=== PATIENT | male | born 1965 | race Hispanic/Latino ===

== ENCOUNTER 2018-11-16 11:28 | Inpatient (IN) | payer OTHER ==
[~2018-11-16] VITALS: Ht 182.9 cm; Wt 156.0 kg
--- OUTSIDE RECORDS SUMMARY | 2018-11-16 11:30 | XMS REPORT ---
Author Author [facility] Address Unknown Phone Unavailable Care Team Providers Care Structured Cabling Technician Name Role Phone Unavailable Unavailable Payers Payer Name Policy Type Policy Number Effective Date Expiration Date Problems This patient has no known problems. Allergies, Adverse Reactions, Alerts Allergy Name Allergy Type Status Severity Reaction(s) Onset Date Inactive Date Treating Clinician Comments No Known Allergies DA Active U 2018-02-16 00:00:00 No Known Allergies DA Active U 2017-04-07 00:00:00 Medications This patient has no known medications.
[2018-11-16 12:34] LABS: BASOPHILS # (AUTO) 0.1 (0.0-0.1); BASOPHILS % 0.4 % (0.0-1.0); EOSINOPHILS # (AUTO) 0.4 (0.0-0.4); HEMATOCRIT 45.2 % (38.2-49.6); HEMOGLOBIN 14.9 g/dL (14.0-18.0); LYMPHOCYTES # (AUTO) 1.4 (1.0-3.2); LYMPHOCYTES % 11.1 % (18.0-39.1); MONOCYTES # (AUTO) 1.7 (0.2-0.8); MONOCYTES % 13.7 % (4.4-11.3); NEUTROPHILS # (AUTO) 8.7 (2.1-6.9); NEUTROPHILS % 71.1 % (38.7-80.0); PLATELET COUNT 236 x10e3/uL (140-360); RED BLOOD COUNT 4.52 x10e6/uL (4.3-5.7)
--- NOTE | 2018-11-16 12:37 | Diagnostic Imaging Report ---
EXAMINATION: CHEST SINGLE (PORTABLE) INDICATION: Shortness of breath. COMPARISON: None FINDINGS: TUBES and LINES: None. LUNGS: Lungs are not well inflated. There is no evidence of pneumonia or pulmonary edema. Linear subsegmental atelectasis at the left lung base. PLEURA: No pleural effusion or pneumothorax. HEART AND MEDIASTINUM: The cardiomediastinal silhouette is unremarkable. BONES AND SOFT TISSUES: No acute osseous abnormality. Healed right posterolateral sixth through eighth rib fractures. UPPER ABDOMEN: No free air under the diaphragm. IMPRESSION: No acute radiographic abnormality. Signed by: Dr. Lillian Sanders MD on 11/16/2018 12:34 PM
[2018-11-16 12:43] LABS: INR 0.85; PROTHROMBIN TIME 12.1 seconds (11.9-14.5)
[2018-11-16 12:44] LABS: PARTIAL THROMBOPLASTIN TIME 19.7 seconds (23.8-35.5)
[2018-11-16] MEDS ORDERED: VANCOMYCIN 1GM/NS 250 ML 250 ML IV SCH (12:45)
[2018-11-16 12:56] LABS: ALANINE AMINOTRANSFERASE 49 IU/L (0-55); ALBUMIN 3.8 g/dL (3.5-5.0); ALKALINE PHOSPHATASE 99 IU/L (40-150); ANION GAP 13.9 mmol/L (8-16); BLOOD UREA NITROGEN 36 mg/dL (7-26); BUN/CREATININE RATIO 20 (6-25); CARBON DIOXIDE 20 mmol/L (22-29); CHLORIDE 104 mmol/L (98-107); CREATINE KINASE 253 IU/L (30-200); CREATININE, SERUM 1.76 mg/dL (0.72-1.25); EST GLOMERULAR FILTRATION RATE 41 ML/MIN (60-); GLUCOSE 92 mg/dL (74-118); POTASSIUM 5.9 mmol/L (3.5-5.1); SODIUM 132 mmol/L (136-145)
[2018-11-16] MEDS ORDERED: LISINOPRIL30 MG PO (12:57)
[2018-11-16] MEDS ORDERED: KLOR-CON M2020 MEQ PO (12:57)
[2018-11-16] MEDS ORDERED: ATENOLOL50 MG PO (12:57)
[2018-11-16] MEDS ORDERED: LEVALBUTEROL INH (12:57)
[2018-11-16] MEDS ORDERED: HYDROCHLOROTHIA50 MG PO (12:57)
[2018-11-16] MEDS ORDERED: METFORMIN HCL1000 MG PO (12:57)
[2018-11-16] MEDS ORDERED: SIMVASTATIN20 MG PO (12:57)
[2018-11-16] MEDS ORDERED: ASPIRIN81 MG PO (12:57)
[2018-11-16] MEDS: ALBUTEROL/IPRATROPIUM 3 ML NEB NEB ONE ×2 (13:30→14:20)
[2018-11-16] MEDS ORDERED: SOD POLYSTYRENE SULFONATE SUSP 15 GM/60 ML BTL PO NR ×2 (15:15→18:30)
[2018-11-16] MEDS ORDERED: SODIUM CHLORIDE 0.9% 1000ML 1,000 ML IV SCH (15:28)
[2018-11-16] MEDS ORDERED: ONDANSETRON HCL INJ 2MG/ML 2ML 2 MG/ML VIAL IV PRN (15:30)
[2018-11-16] MEDS ORDERED: MORPHINE SULFATE 2 MG/ML SYR 1ML IV PRN (15:30)
--- NOTE | 2018-11-16 16:29 | NUR ---
Patient admitted to unit from ER. patient arrived via wheelchair. Patient is AAOx3. Patient lung mendieta clear to auscultation and diminished in lower lung mendieta. Bowel sounds present x4. 2+ edema noted to BLE. Redness noted to BLE as well. Warm to touch. Some pain in legs when ambulates. Right leg redness noted to be at mid julien and left leg noted to be about mid calf. No drainage noted. Patient ambulates on his own. Patient is a 2 pack a day smoker and requesting a nicotine patch. Order received from . No s/s of distress noted
[2018-11-16 16:41] VITALS: BP 103/55
[2018-11-16 16:56] VITALS: BP 103/55
[2018-11-16] MEDS: NICOTINE 21 MG/EA PATCH TOP SCH (17:25)
[2018-11-16] MEDS: SODIUM CHLORIDE 0.9% 1000ML 1,000 ML IV SCH (17:25)
[2018-11-16] MEDS ORDERED: LEVALBUTEROL INH SCH (18:00)
[2018-11-16] MEDS ORDERED: LACTULOSE SYRUP 20 GM/30 ML UDC PO NR ×2 (18:30→21:15)
--- NOTE | 2018-11-16 18:32 | NUR ---
Patient refused chaidez catheter at this time. Patient given a urinal and a hat to void in for strict output. Patient is very anxious at this time and wanting to go smoke. Informed patient I would call MD and get orders for medications
[2018-11-16] MEDS: LEVALBUTEROL 15 GM AERO IH SCH ×2 (19:00→23:00)
[2018-11-16 19:33] VITALS: BP 115/55
[2018-11-16 20:00] VITALS: BP 115/55
[2018-11-16] MEDS ORDERED: TEMAZEPAM 15 MG CAP PO PRN (20:00)
[2018-11-16] MEDS ORDERED: MAGNESIUM HYDROXIDE 30 ML UDC PO PRN (20:00)
[2018-11-16] MEDS ORDERED: PROMETHAZINE HCL 25 MG TAB PO PRN (20:00)
[2018-11-16 20:10] LABS: BILIRUBIN,URINE NEGATIVE (NEGATIVE); CLARITY,URINE CLEAR (CLEAR); COLOR,URINE YELLOW (YELLOW); KETONES,URINE NEGATIVE (NEGATIVE); LEUKOCYTE ESTERASE ,URINE NEGATIVE (NEGATIVE); NITRITE,URINE NEGATIVE (NEGATIVE); PROTEIN,URINE DIPSTICK NEGATIVE (NEGATIVE); URINE UROBILINOGEN 0.2 mg/dL (0.2 - 1)
[2018-11-16 20:25] LABS: BACTERIA,URINE MODERATE /HPF
[2018-11-16] MEDS: ALBUTEROL/IPRATROPIUM 3 ML NEB NEB SCH (20:50)
[2018-11-16] MEDS: SIMVASTATIN 20 MG TAB PO SCH (21:11)
[2018-11-16] MEDS: QUETIAPINE FUMARATE 25 MG TAB PO SCH (21:11)
--- NOTE | 2018-11-16 23:47 | History and Physical ---
Mr. Mejias is a complex 53-year-old man, who is a warehouse shipping receiving clerk, who is sent from Dr. Mejia's office today with right ankle. HISTORY OF PRESENT ILLNESS: Mr. Mejias is a man with the economy of words, but says that his ankles have been swollen since Thursday. Indeed, his ankles have been swollen for a long time and initially was given a diuretic, hydrochlorothiazide 50 mg daily as far back as July initially with some improvement. PAST MEDICAL HISTORY: Significant for longstanding hypertension, hyperglycemia, COPD. He reports he thinks he has sleep apnea, but has never had a sleep study. MEDICATIONS: Recent home medications include lisinopril 30 mg daily, atenolol 50 mg daily, metformin 1000 mg twice a day, simvastatin 20 mg daily, hydrochlorothiazide 50 mg daily, levalbuterol inhaler, and potassium chloride 20 mEq daily. PERSONAL AND SOCIAL HISTORY: Continues to smoke. PAST SURGICAL HISTORY: A left ankle fracture with plate and screws in August of 2014. He may have had angiograms of something in the past, he cannot tell me. FAMILY HISTORY: Father at 54 with stroke. Mother is still alive at age 76. PHYSICAL EXAMINATION: GENERAL: At this time shows an obese man with multiple tattoos. Alert and responsive. VITAL SIGNS: He is 6 feet tall, weighing 344 pounds. Blood pressure is 100/70. HEAD, EYES, EARS, NOSE, AND THROAT: Otherwise unremarkable. NECK: No jugular venous distention. No bruits. THORAX: Heart sounds S1 and S2 are equal. No murmurs. LUNGS: Prolonged inspiratory and expiratory phases, but no wheezing or rhonchi. ABDOMEN: Markedly protuberant. Normal bowel sounds. EXTREMITIES: Have 1+ pretibial edema and bilateral anterior tibial erythema. PERTINENT LABORATORY STUDIES: Show a BUN 36, creatinine 1.76, potassium 5.9. White count 12.2, hemoglobin 14.9. Chest x-ray is unremarkable. ASSESSMENT: 1. Edema and erythema with cellulitis secondary to chronic swelling. 2. Type 2 adult onset diabetes. 3. Renal insufficiency. 4. Hypertension. 5. Hyperkalemia. PLAN: We will hold the lisinopril, potassium and check echocardiogram. I have instructed him to lie down and elevate his legs if he expects improvement of his edema and cellulitis. We will consult Nephrology. Further management based on clinical course. MD FATMATA Camacho/RAISA /[id number] cc: MD Henok Galeano MD
[2018-11-17] VITALS (7 sets, daily range): BP systolic 117–137; BP diastolic 58–63
[2018-11-17] MEDS: ALBUTEROL/IPRATROPIUM 3 ML NEB NEB SCH ×5 (03:05→20:10)
[2018-11-17] MEDS: SODIUM CHLORIDE 0.9% 1000ML 1,000 ML IV SCH ×4 (05:33→23:08)
[2018-11-17] MEDS: QUETIAPINE FUMARATE 25 MG TAB PO SCH ×3 (05:33→22:50)
[2018-11-17 05:38] LABS: HEMATOCRIT 43.2 % (38.2-49.6); HEMOGLOBIN 13.7 g/dL (14.0-18.0); RED BLOOD COUNT 4.18 x10e6/uL (4.3-5.7)
[2018-11-17 05:39] LABS: BASOPHILS # (AUTO) 0.1 (0.0-0.1); BASOPHILS % 0.7 % (0.0-1.0); EOSINOPHILS # (AUTO) 0.5 (0.0-0.4); EOSINOPHILS % 4.4 % (0.0-6.0); LYMPHOCYTES # (AUTO) 2.1 (1.0-3.2); LYMPHOCYTES % 19.3 % (18.0-39.1); MEAN CORPUSCULAR HEMOGLOBIN 32.8 pg (28-32); MEAN CORPUSCULAR HGB CONC 31.7 g/dL (31-35); MONOCYTES # (AUTO) 1.7 (0.2-0.8); MONOCYTES % 15.7 % (4.4-11.3); NEUTROPHILS # (AUTO) 6.3 (2.1-6.9); NEUTROPHILS % 59.1 % (38.7-80.0); PLATELET COUNT 220 x10e3/uL (140-360); RED CELL DISTRIBUTION WIDTH 14.1 % (11.7-14.4)
[2018-11-17 05:40] LABS: MEAN CORPUSCULAR VOLUME 103.3 fL (81-99)
[2018-11-17 05:54] LABS: ANION GAP 12.6 mmol/L (8-16); CREATININE, SERUM 1.38 mg/dL (0.72-1.25); POTASSIUM 4.6 mmol/L (3.5-5.1)
[2018-11-17] MEDS: LEVALBUTEROL 15 GM AERO IH SCH ×5 (07:05→23:00)
[2018-11-17] MEDS ORDERED: HYDROCHLOROTHIAZIDE 50 MG PO SCH (09:00)
[2018-11-17] MEDS ORDERED: NON-FORMULARY MEDICATION (Metformin Hcl 1,000 MG) PO SCH (09:00)
[2018-11-17] MEDS ORDERED: VANCOMYCIN 1GM/NS 250 ML 250 ML IV SCH (09:00)
[2018-11-17] MEDS: METFORMIN HCL 500 MG TAB PO SCH ×2 (09:34→16:53)
[2018-11-17] MEDS: ASPIRIN 81 MG CHEW TAB PO SCH (09:35)
[2018-11-17] MEDS: NICOTINE 21 MG/EA PATCH TOP SCH (09:35)
[2018-11-17] MEDS: ATENOLOL 50 MG TAB PO SCH (09:35)
[2018-11-17] MEDS: HYDROCHLOROTHIAZIDE 25 MG TAB PO SCH (09:35)
--- NOTE | 2018-11-17 10:46 | NUR ---
Labs reported to Dr. Ibarra , no new orders at this time
--- NOTE | 2018-11-17 11:01 | Diagnostic Imaging Report ---
Renal ultrasound. History: NASEEM Discussion: Transverse and longitudinal images of the kidneys were obtained demonstrating normal renal sizes and echogenicities. There is no evidence of hydronephrosis, mass, or renal calculus. The right kidney measures 11.7 x 5.8 x 6.1 cm and the left kidney measures 12.1 x 5.7 x 4.5 cm. Maximal cortical thickness on the right is 1.8 cm and on the left 1.7 cm. The urinary bladder is unremarkable. Urinary jets are not visualized. There is no evidence of free fluid. Incidental notice is made of a fatty liver. IMPRESSION: Normal renal ultrasound. Signed by: Dr. Vitaliy Banks DO on 11/17/2018 10:57 AM
[2018-11-17] MEDS: VANCOMYCIN 1GM/NS 250 ML 250 ML IV SCH (12:11)
--- NOTE | 2018-11-17 15:13 | NUR ---
Nutrition Screen Note RD Recommendation for Physician: -Continue current diet as ordered Plan of Care: RD following, monitoring for tolerance and adequacy Nutrition reason for involvement: Nutrition Risk Trigger MST Primary Diagnose(s): Edema and erythema with cellulitis secondary to chronic swelling. PMH: hypertension, COPD, DM Ht: 72in Wt: 344lb BMI: 46.7kg/m2 IBW: 178lb RD Assessment: (11/17) Chart reviewed. Labs and meds reviewed. 53yo M, who was admitted for LLE cellulitis and swelling. Visited pt in the room. Pt reported good appetite prior and during hospital stay. No recent weight loss reported. Pt denied any nausea or vomiting. LBM 11/16. No chewing or swallowing difficulty noted. Will continue to monitor and follow. Current Diet: ADA 1800 Malnutrition Evaluation (11/17/2018) The patient does not meet criteria for a specified degree of malnutrition at this time. Will re-evaluate at follow-up as appropriate. Diet Education Needs Assessment: Diet education not indicated. Nutrition Care Level: low Signed: Cher Carias, MS, RD, LD
[2018-11-17] MEDS ORDERED: DEXTROSE 50% SYRINGE 50 ML IV PRN (17:30)
[2018-11-17] MEDS ORDERED: MORPHINE SULFATE INJ 4 MG/ML INJ 1ML IV PRN (17:30)
--- NOTE | 2018-11-17 18:12 | NUR ---
Urine sample taken to lab
[2018-11-17 18:33] LABS: BILIRUBIN,URINE NEGATIVE (NEGATIVE); CLARITY,URINE CLEAR (CLEAR); COLOR,URINE YELLOW (YELLOW); KETONES,URINE NEGATIVE (NEGATIVE); LEUKOCYTE ESTERASE ,URINE NEGATIVE (NEGATIVE); NITRITE,URINE NEGATIVE (NEGATIVE); PROTEIN,URINE DIPSTICK TRACE (NEGATIVE); URINE UROBILINOGEN 0.2 mg/dL (0.2 - 1)
--- NOTE | 2018-11-17 19:22 | NUR ---
Bedside report and walking rounds complete. Pt resting in bed and in no apparent distress. All safety measures ensured and pt call mattson near. Pt encouraged to use call mattson for assistance.
[2018-11-17 19:51] LABS: CREATININE,URINE RANDOM 57.1 mg/dL (63-166); TOTAL PROTEIN, URINE 17.2 mg/dL (1-14)
[2018-11-17] MEDS: INSULIN REGULAR, HUMAN 100 UNIT/1 ML 3ML VIAL SQ SCH (21:00)
--- NOTE | 2018-11-17 22:07 | Consultation ---
DATE OF CONSULTATION: 11/17/2018 REASON FOR CONSULTATION: Hyperkalemia and acute kidney injury. HISTORY OF PRESENT ILLNESS: A 53-year-old gentleman with at least 8 years history of type 2 diabetes, maintained on metformin with a history of hypertension, tobacco addiction, has been on metformin, hydrochlorothiazide, atenolol at home, currently on temazepam, simvastatin, Seroquel, Phenergan p.r.n., Zofran p.r.n., nicotine patch, metformin, atenolol or Tenormin, aspirin, albuterol, Atrovent nebulizer, and Tylenol. He denies any prior history of any renal insufficiency or kidney stone disease. Found to have a potassium level, which was elevated at 5.9, treated with Kayexalate and lactulose with good response. The patient loves to drink Gatorade he says. Drinks about two or three bottles a day. Continues to smoke. Does not drink. Looking at his body habitus, I asked him if he had. He snores or has a history of sleep apnea. The patient states that he does snore, but he is not sure if he has sleep apnea or not. He does take nebulizer at home before going to bed. He denies any hematuria, cough, hemoptysis, or shortness of breath. Denies any exposure to hepatitis B or hepatitis C. Denies any joint pains. Denies any swelling of the extremities. He did notice a reddish colored rash in the pretibial areas quite symmetric bilaterally, which is small, blotchy, and with few petechiae. Otherwise, he has not noticed that rash anywhere in his body. ALLERGIES: HE DENIES ANY DRUG ALLERGIES. LABORATORY TEST: He had a urinalysis done shows specific gravity 10/20, urine microscopy completely benign with 0 RBC in fact none and no WBCs. Dipstick negative proteins. SOCIAL HISTORY: As above, he does drink occasionally, but not on a regular basis he stays. CURRENT MEDICATIONS: As mentioned above. He is on Seroquel 25 mg p.o. q.8, aspirin 81 mg daily, received one dose of vancomycin, currently receiving normal saline 125 mL an hour. PHYSICAL EXAMINATION: GENERAL: Awake, alert, lying supine, in no apparent distress with a blood pressure 123/63, pulse rate 90, afebrile, and oxygen saturation 94%. HEAD AND NECK: Cornea clear. Mucosa moist. Neck veins flat. LUNGS: Relatively clear. HEART: S1, S2 audible. ABDOMEN: Soft and nontender. EXTREMITIES: Lower extremity, no edema. SKIN: There is no rash noted on the abdomen. No petechiae or purpura noted anywhere else. IMPRESSION AND PLAN: 1. Acute kidney injury, improving. 2. Hyperkalemia, resolving. 3. Underlying type 2 diabetes. 4. Suspect acute on chronic kidney injury. 5. Possible diabetic nephropathy. 6. Vasculitis is a differential diagnosis, but urinalysis completely benign. I will repeat UA with microscopy. Obtain uric acid level. Please see orders. MD KVNG Nettles/MODL /[id number]
[2018-11-17] MEDS: SIMVASTATIN 20 MG TAB PO SCH (22:50)
[2018-11-18] VITALS (7 sets, daily range): BP systolic 118–136; BP diastolic 58–69
[2018-11-18] MEDS: ALBUTEROL/IPRATROPIUM 3 ML NEB NEB SCH ×7 (00:10→23:45)
[2018-11-18] MEDS: LEVALBUTEROL 15 GM AERO IH SCH ×6 (03:00→23:00)
[2018-11-18] MEDS: QUETIAPINE FUMARATE 25 MG TAB PO SCH ×3 (06:00→21:46)
[2018-11-18 06:02] LABS: BASOPHILS # (AUTO) 0.1 (0.0-0.1); BASOPHILS % 0.7 % (0.0-1.0); EOSINOPHILS # (AUTO) 0.5 (0.0-0.4); HEMATOCRIT 43.3 % (38.2-49.6); HEMOGLOBIN 13.6 g/dL (14.0-18.0); LYMPHOCYTES # (AUTO) 2.4 (1.0-3.2); LYMPHOCYTES % 24.8 % (18.0-39.1); MEAN CORPUSCULAR HEMOGLOBIN 32.2 pg (28-32); MEAN CORPUSCULAR HGB CONC 31.4 g/dL (31-35); MEAN CORPUSCULAR VOLUME 102.4 fL (81-99); MONOCYTES # (AUTO) 1.4 (0.2-0.8); MONOCYTES % 13.8 % (4.4-11.3); NEUTROPHILS # (AUTO) 5.3 (2.1-6.9); NEUTROPHILS % 54.7 % (38.7-80.0); PLATELET COUNT 232 x10e3/uL (140-360); RED BLOOD COUNT 4.23 x10e6/uL (4.3-5.7); RED CELL DISTRIBUTION WIDTH 13.9 % (11.7-14.4)
[2018-11-18 06:26] LABS: ALANINE AMINOTRANSFERASE 55 IU/L (0-55); ALBUMIN 3.3 g/dL (3.5-5.0); ALKALINE PHOSPHATASE 85 IU/L (40-150); ANION GAP 12.7 mmol/L (8-16); BLOOD UREA NITROGEN 22 mg/dL (7-26); BUN/CREATININE RATIO 20 (6-25); CALCIUM 9.4 mg/dL (8.4-10.2); CARBON DIOXIDE 25 mmol/L (22-29); CHLORIDE 104 mmol/L (98-107); CREATININE, SERUM 1.12 mg/dL (0.72-1.25); EST GLOMERULAR FILTRATION RATE > 60 ML/MIN (60-); GLUCOSE 117 mg/dL (74-118); POTASSIUM 4.7 mmol/L (3.5-5.1); SODIUM 137 mmol/L (136-145)
[2018-11-18] MEDS: INSULIN REGULAR, HUMAN 100 UNIT/1 ML 3ML VIAL SQ SCH (07:30)
[2018-11-18] MEDS: SODIUM CHLORIDE 0.9% 1000ML 1,000 ML IV SCH ×2 (08:00→15:30)
[2018-11-18] MEDS: HYDROCHLOROTHIAZIDE 25 MG TAB PO SCH (09:24)
[2018-11-18] MEDS: VANCOMYCIN 1GM/NS 250 ML 250 ML IV SCH (09:24)
[2018-11-18] MEDS: NICOTINE 21 MG/EA PATCH TOP SCH (09:24)
[2018-11-18] MEDS: ASPIRIN 81 MG CHEW TAB PO SCH (09:24)
[2018-11-18] MEDS: ATENOLOL 50 MG TAB PO SCH (09:24)
[2018-11-18 14:37] LABS: FREE T4 (FREE THYROXINE) 0.75 ng/dL (0.9-1.8); THYROID STIMULATING HORMONE 2.803 uIU/mL (0.350-4.940)
--- NOTE | 2018-11-18 15:00 | NUR ---
Nutrition Follow-up Note RD Recommendation for Physician: - Continue current diet as ordered - RD provided education on ADA diet as consulted. Plan of Care: RD following, monitoring for tolerance and adequacy, diet education Nutrition reason for involvement: MD consult diet education Primary Diagnose(s): Edema and erythema with cellulitis secondary to chronic swelling. PMH: hypertension, COPD, DM Ht: 72in Wt: 344lb BMI: 46.7kg/m2 IBW: 178lb RD Assessment: (11/18) Visited pt in the room. Per , pt will be starting on Keto diet soon. Explained that it is important to check BG while on this diet as pt could be at risk for hypoglycemia. Provided a list of carbohydrate foods as requested by . Reinforced the importance of a healthy balanced diet to control blood glucose and promote weight loss. All questions have been answered. Pt and verbalized understanding. (11/17) Chart reviewed. Labs and meds reviewed. 53yo M, who was admitted for LLE cellulitis and swelling. Visited pt in the room. Pt reported good appetite prior and during hospital stay. No recent weight loss reported. Pt denied any nausea or vomiting. LBM 11/16. No chewing or swallowing difficulty noted. Will continue to monitor and follow. Current Diet: ADA 1800 Malnutrition Evaluation (11/17/2018) The patient does not meet criteria for a specified degree of malnutrition at this time. Will re-evaluate at follow-up as appropriate. Diet Education Needs Assessment: Diet education was provided as consulted. Nutrition Care Level: low Signed: Cher Carias, MS, RD, LD
[2018-11-18] MEDS ORDERED: ONDANSETRON HCL 4 MG ORAL DISINTEGRATING TAB PO PRN (15:30)
[2018-11-18] MEDS: INSULIN LISPRO 100 UNIT/1 ML 3ML VIAL SQ SCH ×2 (16:30→21:00)
--- NOTE | 2018-11-18 19:07 | NUR ---
received patient resting in bed, stable condition. bed locked and in lowest position, call light within easy reach.
[2018-11-18] MEDS: ACETAMINOPHEN 325 MG TAB PO PRN (19:36)
--- NOTE | 2018-11-18 21:39 | Consultation ---
DATE OF CONSULTATION: 11/18/2018 ADDITIONAL REFERRING PHYSICIAN: HISTORY OF PRESENT ILLNESS: Thank you very much for referring this patient. This is a 53-year-old white male gentleman, who is very well known to me from his previous followup. The patient came to the hospital with history of significant swelling and redness of both legs associated with severe pain. The patient was found to have cellulitis and was admitted to the hospital for further evaluation. The patient also has longstanding history of hypertension, diabetes mellitus type 2, COPD, chronic smoker. He takes metformin and lisinopril at home. He also has history of obesity. PHYSICAL EXAMINATION: GENERAL: Today, the patient is alert, awake, little bit apprehensive. He is moderately overweight. VITAL SIGNS: His heart rate is around 78, blood pressure 130/80 mmHg. HEENT: Essentially unremarkable. Thyroid is palpable. Clinically, he is near euthyroid. CHEST: Bilateral vesicular breathing. He has bilateral bronchospasm. CARDIAC: First and second heart sounds. There is no third or fourth heart sound. EXTREMITIES: The patient has evidence of diabetic sensory neuropathy in both lower extremities. LABORATORY DATA: At the time of admission, his creatinine was slightly elevated. His white count is normal at 9.76. CLINICAL IMPRESSION: Cellulitis of legs, morbid obesity, hypertension, diabetes mellitus type 2 with complications. PLAN: At this time is to hold metformin for now, given the insulin as needed. We will also do hemoglobin A1c and thyroid function test. The patient is getting IV antibiotics for now. Thank you again for referring this patient. I will be following this patient with you. MD KYUNG Lopez/RAISA /[id number] TARAH
[2018-11-18] MEDS: SIMVASTATIN 20 MG TAB PO SCH (21:46)
[2018-11-19] VITALS: BP 111/59
[2018-11-19] MEDS: LEVALBUTEROL 15 GM AERO IH SCH ×4 (03:00→14:53)
[2018-11-19] MEDS: ALBUTEROL/IPRATROPIUM 3 ML NEB NEB SCH ×4 (03:00→14:45)
[2018-11-19 04:00] VITALS: BP 143/60
[2018-11-19] MEDS: QUETIAPINE FUMARATE 25 MG TAB PO SCH ×2 (05:38→14:18)
--- NOTE | 2018-11-19 07:00 | NUR ---
BEDSIDE SHIFT REPORT RECEIVED FROM [employer] RN. PT HAS LEXISCAN TODAY AND KEPT AT NPO PER THE INSTRUCTION FROM [employer]. PT DENIES NEEDS AT THIS TIME.
[2018-11-19] MEDS: INSULIN LISPRO 100 UNIT/1 ML 3ML VIAL SQ SCH ×2 (07:30→11:30)
[2018-11-19] MEDS ORDERED: REGADENOSON 0.4 MG/5 ML SYR IV ONE (07:52)
[2018-11-19 07:59] VITALS: BP 142/74
[2018-11-19] MEDS: SODIUM CHLORIDE 0.9% 1000ML 1,000 ML IV SCH ×4 (08:00→16:00)
--- NOTE | 2018-11-19 08:40 | NUR ---
PT OFF UNIT FOR PROCEDURE.
[2018-11-19 09:00] VITALS: BP 142/74
[2018-11-19] MEDS ORDERED: ALLOPURINOL 100 MG TAB PO SCH (09:00)
--- NOTE | 2018-11-19 09:52 | NUR ---
PT BACK TO UNIT. PROCEDURE NOT DONE YET.
--- NOTE | 2018-11-19 10:02 | NUR ---
PT OFF UNIT FOR PROCEDURE.
--- NOTE | 2018-11-19 11:30 | NUR ---
PT IS BACK TO UNIT AFTER PROCEDURE. PT DENIES NEEDS AT THIS TIME.
[2018-11-19] MEDS: VANCOMYCIN 1GM/NS 250 ML 250 ML IV SCH (11:50)
[2018-11-19] MEDS: HYDROCHLOROTHIAZIDE 25 MG TAB PO SCH (11:51)
[2018-11-19] MEDS: ASPIRIN 81 MG CHEW TAB PO SCH (11:51)
[2018-11-19] MEDS: ACETAMINOPHEN 325 MG TAB PO PRN (11:53)
[2018-11-19] MEDS: ATENOLOL 50 MG TAB PO SCH (11:59)
[2018-11-19] MEDS: NICOTINE 21 MG/EA PATCH TOP SCH (11:59)
[2018-11-19 12:13] VITALS: BP 156/83
--- NOTE | 2018-11-19 15:00 | NUR ---
OKAY TO DISCHARGE PT PER DR CASTRO AFTER DISCUSSING WITH DR ORTIZ.
[2018-11-19] MEDS ORDERED: SEROQUEL25 MG PO (16:43)
[2018-11-19] MEDS ORDERED: ALLOPURINOL100 MG PO (16:43)
--- NOTE | 2018-11-19 16:57 | NUR ---
ANTI EMBOLISM STOCKINGS GIVEN TO THE PT, PER DR. ORTIZ.
--- NOTE | 2018-11-19 17:00 | NUR ---
OKAY TO DISCHARGE PER DR. ORTIZ
[2018-11-19 17:02] VITALS: BP 133/63
--- NOTE | 2018-11-19 18:35 | NUR ---
PT DISCHARGED SAFELY HOME WITH FAMILY. TELE AND IV REMOVED. TIP INTACT. NO BLEEDING NOTED AND DRESSING APPLIED. PRESCRIPTION GIVEN AND PT VERBALIZED UNDERSTANDING. PT DENIED FURTHER NEEDS.
--- NOTE | 2018-11-19 20:24 | Myoview Stress Test ---
DATE OF STUDY: 11/19/2018 00:00:00 Stress Test - Treadmill ONLY DATE OF STUDY: November 18, 2018 and November 19, 2018. Lexiscan Myoview. Two-day study. On the 18 of November, the patient had resting perfusion images taken after injection of 27 mCi of technetium-99m Myoview. On the morning of the , the patient was given Lexiscan 0.4 mg intravenously due to inability to exercise. Perfusion images were taken by rotational tomography. Comparison of resting and Lexiscan stress images showed some motion artifact, but there was no evidence of any distinct regional wall motion abnormalities to suggest any scar or ischemia. Additionally, gated wall motion images were obtained and calculated ejection fraction normal at 58% without regional wall motion abnormality. FINAL IMPRESSION: 1. Normal Lexiscan Myoview for perfusion. 2. Minor soft tissue and motion artifacts. 3. Normal left ventricular function with calculated ejection fraction of 58%. MD FATMATA Camacho/RAISA /[id number] cc: Henok Ibarra MD
--- NOTE | 2018-11-20 01:10 | Discharge Summary ---
Mr. Mejias is a complex 53-year-old man, sent from Dr. Mejia's office with edema and erythema of the legs. HOSPITAL COURSE: The patient initially found to have renal insufficiency. BUN 36, creatinine 1.76, potassium 5.9. He had significant erythema. He was given vancomycin 1 g IV piggyback daily. He was placed on bedrest and instructed not to smoke. He required Seroquel and Habitrol patches. His BUN and creatinine gradually improved until today. They have returned to normal. Dr. Ibarra checked his uric acid, found to be 11.3, and he was given allopurinol total of 200 mg daily. Echocardiogram showed some left ventricular hypertrophy. Normal systolic function. His Cardiolite today shows normal LV function and normal perfusion. He is discharged home to discontinue the potassium and will resume his metformin. He will discontinue lisinopril and will take 7 days of Keflex 500 mg every 8 hours. He has a prescription for the allopurinol, Seroquel 25 mg every 8 hours as needed for anxiety and agitation, Habitrol patch 21 mg #31 daily. He will follow up with Dr. Mejia on a regular basis and he will see Dr. Arsenio Dsouza for his diabetic management. He will follow my office in 2 weeks. DISCHARGE DIAGNOSES: 1. Renal insufficiency. 2. Hyperkalemia. 3. Edema. 4. Type 2 adult onset diabetes. 5. Cellulitis versus vasculitis. MD FATMATA Camacho/RAISA /[id number]
== END 2018-11-19 19:34 | disposition home or self-care (01) | DRG 683 ==
LOC: ER 11:28 → ERHOLD 15:28 → INTOOBSV 15:28 → MED/SURG2 16:30 → OBSVTOIN 11-18 12:22
PROVIDERS: ADMIT Internal Medicine Cardiovascular Disease; ATTEND Internal Medicine Cardiovascular Disease
DX: N17.9 Acute kidney failure, unspecified (principal); Z68.42 Body mass index [BMI] 45.0-49.9, adult; E87.5 Hyperkalemia; F17.210 Nicotine dependence, cigarettes, uncomplicated; Z87.891 Personal history of nicotine dependence; Z87.442 Personal history of urinary calculi; E11.21 Type 2 diabetes mellitus with diabetic nephropathy; Z79.4 Long term (current) use of insulin; I77.6 Arteritis, unspecified; E66.01 Morbid (severe) obesity due to excess calories; J44.9 Chronic obstructive pulmonary disease, unspecified; E11.22 Type 2 diabetes mellitus with diabetic chronic kidney disease; I12.9 Hypertensive chronic kidney disease with stage 1 through stage 4 chronic kidney disease, or unspecified chronic kidney disease; N18.9 Chronic kidney disease, unspecified
CPT/HCPCS: 36415; 71045; 76770; 78452; 80048; 80053; 81001; 82550; 82553; 82570; 82948; 83036; 83880; 84156; 84439; 84443; 84484; 84550; 85025; 85610; 85730; 93005; 93017; 93306; 94640; 99284; A9502; G0378; J3370; J7030

== ENCOUNTER 2020-09-09 20:13 | Emergency (ER) | payer OTHER ==
[~2020-09-09] VITALS: Ht 182.9 cm; Wt 156.0 kg
[~2020-09-09 20:13] MED LIST: ALLOPURINOL100 MG PO; ASPIRIN81 MG PO; ATENOLOL50 MG PO; HYDROCHLOROTHIA50 MG PO; KLOR-CON M2020 MEQ PO; LEVALBUTEROL INH; LISINOPRIL30 MG PO; METFORMIN HCL1000 MG PO; SEROQUEL25 MG PO; SIMVASTATIN20 MG PO
[2020-09-09] MEDS ORDERED: HYDROCODONE/APAP 10MG-325MG TAB PO ONE (20:30)
[2020-09-09] MEDS ORDERED: DIAZEPAM 2 MG TAB PO ONE (20:30)
[2020-09-10] MEDS ORDERED: DIAZEPAM 2 MG TAB PO SCH (09:00)
[2020-09-10] MEDS ORDERED: TYLENOL # 31 EA PO (18:00)
[2020-09-10] MEDS ORDERED: VALIUM2 MG PO (18:00)
== END 2020-09-09 22:10 | disposition home or self-care (01) ==
LOC: ER 20:23
DX: S39.012A Strain of muscle, fascia and tendon of lower back, initial encounter (principal); I10 Essential (primary) hypertension; E11.9 Type 2 diabetes mellitus without complications; J44.9 Chronic obstructive pulmonary disease, unspecified; I50.9 Heart failure, unspecified; I73.9 Peripheral vascular disease, unspecified; G47.30 Sleep apnea, unspecified
CPT/HCPCS: 72110; 99283

== ENCOUNTER 2021-03-04 11:34 | Inpatient (IN) | payer OTHER ==
[~2021-03-04] VITALS: Ht 182.9 cm; Wt 156.0 kg
[~2021-03-04 11:34] MED LIST changes: +TYLENOL # 31 EA PO; +VALIUM2 MG PO
[2021-03-04] MEDS ORDERED: HYDROCODONE/APAP 7.5MG-325MG 1 EA TAB PO STA (13:17)
[2021-03-04 13:48] LABS: BASOPHILS # (AUTO) 0.1 (0.0-0.1); BASOPHILS % 0.6 % (0.0-1.0); EOSINOPHILS # (AUTO) 0.3 (0.0-0.4); EOSINOPHILS % 2.4 % (0.0-6.0); HEMATOCRIT 48.8 % (38.2-49.6); HEMOGLOBIN 15.2 g/dL (14.0-18.0); LYMPHOCYTES # (AUTO) 2.1 (1.0-3.2); LYMPHOCYTES % 18.4 % (18.0-39.1); MEAN CORPUSCULAR HEMOGLOBIN 31.8 pg (28-32); MEAN CORPUSCULAR HGB CONC 31.1 g/dL (31-35); MEAN CORPUSCULAR VOLUME 102.1 fL (81-99); MONOCYTES # (AUTO) 1.4 (0.2-0.8); MONOCYTES % 12.1 % (4.4-11.3); NEUTROPHILS # (AUTO) 7.4 (2.1-6.9); NEUTROPHILS % 66.1 % (38.7-80.0); PLATELET COUNT 299 x10e3/uL (140-360); RED BLOOD COUNT 4.78 x10e6/uL (4.3-5.7); RED CELL DISTRIBUTION WIDTH 14.6 % (11.7-14.4)
[2021-03-04] MEDS ORDERED: Vancomycin IV 1 GM in SODIUM CHLORIDE 0.9% 250ML 250 ML IV STA (13:59)
[2021-03-04 14:02] LABS: INR 0.96
[2021-03-04 14:03] LABS: PARTIAL THROMBOPLASTIN TIME 26.1 seconds (23.8-35.5)
[2021-03-04 14:14] LABS: ALBUMIN 3.6 g/dL (3.5-5.0); ANION GAP 13.5 mmol/L (8-16); CALCIUM 9.5 mg/dL (8.4-10.2); CREATININE, SERUM 1.01 mg/dL (0.72-1.25); POTASSIUM 4.5 mmol/L (3.5-5.1)
[2021-03-04 14:20] LABS: CREATINE KINASE MB 1.4 ng/mL (0-5.0)
[2021-03-04] MEDS ORDERED: DIAZEPAM 5 MG TAB PO PRN (15:15)
[2021-03-04] MEDS ORDERED: ONDANSETRON HCL INJ 2MG/ML 2ML 2 MG/ML VIAL IV PRN (15:15)
[2021-03-04] MEDS ORDERED: DOCUSATE SODIUM 100 MG CAP PO PRN (15:15)
[2021-03-04 15:32] LABS: CHOL/HDL RATIO 3.6 (3.9-4.7)
[2021-03-04] MEDS ORDERED: ALBUTEROL SULFATE HFA 8GM INHALATION AEROSOL INH PRN (15:45)
[2021-03-04] MEDS ORDERED: NICOTINE 7 MG PATCH TOP STA (15:59)
[2021-03-04] MEDS: CEFTRIAXONE 1 GM in SODIUM CHLORIDE 0.9% 50ML 50 ML IV SCH (16:11)
[2021-03-04] MEDS: ENOXAPARIN SOD INJ 40 MG/0.4 ML SYR SC SCH (16:16)
[2021-03-04 17:00] VITALS: BP 124/62
[2021-03-04 17:17] VITALS: BP 124/62
[2021-03-04] MEDS: FUROSEMIDE INJ 10 MG/ML 2 ML VIAL IV SCH (18:00)
[2021-03-04] MEDS ORDERED: TORSEMIDE20 MG PO (18:53)
[2021-03-04] MEDS: ACETAMINOPHEN/CODEINE 300MG - 30MG TAB PO PRN (19:40)
[2021-03-04 19:59] VITALS: BP 124/62
[2021-03-04 20:00] VITALS: BP 119/72
[2021-03-04] MEDS: ATORVASTATIN 20 MG TAB PO SCH (20:09)
[2021-03-04] MEDS: ALBUTEROL/IPRATROPIUM 3 ML NEB NEB PRN (20:35)
[2021-03-04] MEDS ORDERED: ZOLPIDEM TARTRATE 5 MG TAB PO PRN (21:00)
[2021-03-04] MEDS: QUETIAPINE FUMARATE 25 MG TAB PO SCH (22:00)
[2021-03-04 23:46] VITALS: BP 126/70
[2021-03-05] VITALS (7 sets, daily range): BP systolic 99–139; BP diastolic 61–85
[2021-03-05] MEDS ORDERED: SODIUM CHLORIDE 0.9% 1000ML 1,000 ML ONE (05:22)
[2021-03-05 05:23] LABS: BASOPHILS # (AUTO) 0.1 (0.0-0.1); BASOPHILS % 0.4 % (0.0-1.0); EOSINOPHILS # (AUTO) 0.3 (0.0-0.4); EOSINOPHILS % 2.2 % (0.0-6.0); HEMATOCRIT 48.2 % (38.2-49.6); HEMOGLOBIN 14.9 g/dL (14.0-18.0); LYMPHOCYTES % 16.4 % (18.0-39.1); MEAN CORPUSCULAR HGB CONC 30.9 g/dL (31-35); MEAN CORPUSCULAR VOLUME 100.4 fL (81-99); MONOCYTES # (AUTO) 1.4 (0.2-0.8); MONOCYTES % 11.6 % (4.4-11.3); NEUTROPHILS # (AUTO) 8.3 (2.1-6.9); NEUTROPHILS % 68.9 % (38.7-80.0); PLATELET COUNT 288 x10e3/uL (140-360); RED CELL DISTRIBUTION WIDTH 14.5 % (11.7-14.4)
[2021-03-05] MEDS: QUETIAPINE FUMARATE 25 MG TAB PO SCH ×3 (05:37→21:31)
[2021-03-05] MEDS: Vancomycin IV 1 GM in SODIUM CHLORIDE 0.9% 250ML 250 ML IV SCH ×2 (05:37→18:04)
[2021-03-05] MEDS: ACETAMINOPHEN/CODEINE 300MG - 30MG TAB PO PRN ×2 (05:37→14:45)
[2021-03-05] MEDS: FUROSEMIDE INJ 10 MG/ML 2 ML VIAL IV SCH ×2 (05:37→17:06)
[2021-03-05 05:51] LABS: ANION GAP 16.6 mmol/L (8-16); CALCIUM 9.6 mg/dL (8.4-10.2); CREATININE, SERUM 0.92 mg/dL (0.72-1.25); POTASSIUM 4.6 mmol/L (3.5-5.1)
[2021-03-05] MEDS: ALBUTEROL/IPRATROPIUM 3 ML NEB NEB PRN ×3 (07:25→15:10)
[2021-03-05] MEDS: ALLOPURINOL 100 MG TAB PO SCH (09:00)
[2021-03-05] MEDS: ATENOLOL 50 MG TAB PO SCH (09:00)
[2021-03-05] MEDS ORDERED: NICOTINE 7 MG PATCH TOP SCH (09:00)
[2021-03-05] MEDS: CEFTRIAXONE 1 GM in SODIUM CHLORIDE 0.9% 50ML 50 ML IV SCH (17:06)
[2021-03-05] MEDS: METFORMIN HCL 500 MG TAB PO SCH (17:06)
[2021-03-05] MEDS: ENOXAPARIN SOD INJ 40 MG/0.4 ML SYR SC SCH (17:06)
[2021-03-05] MEDS ORDERED: NICOTINE 21 MG/EA PATCH TOP SCH (21:00)
[2021-03-05] MEDS: ATORVASTATIN 20 MG TAB PO SCH (21:00)
[2021-03-06] VITALS: BP 91/76
[2021-03-06] MEDS: ACETAMINOPHEN/CODEINE 300MG - 30MG TAB PO PRN (02:56)
[2021-03-06 04:00] VITALS: BP 113/67
[2021-03-06] MEDS: FUROSEMIDE INJ 10 MG/ML 2 ML VIAL IV SCH (06:00)
[2021-03-06] MEDS: QUETIAPINE FUMARATE 25 MG TAB PO SCH (06:00)
[2021-03-06] MEDS: Vancomycin IV 1 GM in SODIUM CHLORIDE 0.9% 250ML 250 ML IV SCH (06:00)
[2021-03-06] MEDS ORDERED: TORSEMIDE20 MG PO (06:22)
[2021-03-06] MEDS ORDERED: CEFUROXIME250 MG PO (06:22)
[2021-03-06] MEDS ORDERED: METFORMIN HCL500 MG PO (06:22)
[2021-03-06] MEDS ORDERED: CLINDAMYCIN HC150 MG PO (06:22)
[2021-03-06 06:29] LABS: BASOPHILS # (AUTO) 0.1 (0.0-0.1); BASOPHILS % 0.5 % (0.0-1.0); EOSINOPHILS # (AUTO) 0.3 (0.0-0.4); EOSINOPHILS % 2.5 % (0.0-6.0); HEMATOCRIT 49.7 % (38.2-49.6); HEMOGLOBIN 15.9 g/dL (14.0-18.0); LYMPHOCYTES # (AUTO) 2.1 (1.0-3.2); LYMPHOCYTES % 18.7 % (18.0-39.1); MEAN CORPUSCULAR HEMOGLOBIN 31.5 pg (28-32); MEAN CORPUSCULAR VOLUME 98.4 fL (81-99); MONOCYTES # (AUTO) 1.4 (0.2-0.8); MONOCYTES % 12.4 % (4.4-11.3); NEUTROPHILS # (AUTO) 7.2 (2.1-6.9); NEUTROPHILS % 65.2 % (38.7-80.0); PLATELET COUNT 314 x10e3/uL (140-360); RED BLOOD COUNT 5.05 x10e6/uL (4.3-5.7); RED CELL DISTRIBUTION WIDTH 14.3 % (11.7-14.4)
[2021-03-06 06:52] LABS: ANION GAP 17.3 mmol/L (8-16); CREATININE, SERUM 0.99 mg/dL (0.72-1.25); POTASSIUM 4.3 mmol/L (3.5-5.1)
[2021-03-06 08:34] VITALS: BP 119/73
[2021-03-06 08:52] VITALS: BP 119/73
[2021-03-06] MEDS: ALLOPURINOL 100 MG TAB PO SCH (09:00)
[2021-03-06] MEDS: METFORMIN HCL 500 MG TAB PO SCH (09:14)
[2021-03-06] MEDS: ATENOLOL 50 MG TAB PO SCH (09:15)
== END 2021-03-06 09:35 | disposition home or self-care (01) | DRG 603 ==
LOC: ER 12:45 → ERHOLD 14:10 → MED/SURG3 16:45 → OBSVTOIN 03-05 09:51
PROVIDERS: ADMIT Internal Medicine; ATTEND Internal Medicine
DX: L03.116 Cellulitis of left lower limb (principal); Z68.42 Body mass index [BMI] 45.0-49.9, adult; L03.115 Cellulitis of right lower limb; I10 Essential (primary) hypertension; E11.9 Type 2 diabetes mellitus without complications; J44.9 Chronic obstructive pulmonary disease, unspecified; F17.210 Nicotine dependence, cigarettes, uncomplicated; E66.9 Obesity, unspecified; E78.5 Hyperlipidemia, unspecified; Z20.822 Contact with and (suspected) exposure to COVID-19; Z79.82 Long term (current) use of aspirin; Z79.84 Long term (current) use of oral hypoglycemic drugs
CPT/HCPCS: 36415; 80048; 80053; 80061; 82550; 82553; 82948; 83036; 83880; 84484; 85025; 85610; 85730; 87040; 93005; 93970; 94640; 94664; 99284; G0378; J0696; J1650; J1940; J3370; J7030; J7050; U0002